=== PATIENT | male | born 1965 | race Caucasian/White ===

== ENCOUNTER 2017-02-06 05:20 | Inpatient (IN) | payer MEDICARE ==
[2017-02-01 09:10] VITALS: BP 117/71
[~2017-02-06] VITALS: Ht 198.1 cm; Wt 141.0 kg
[~2017-02-06 05:20] MED LIST: ATOR10TA PO; CEFAZOLIN 1,000 MG ONE; DEXAMETHASONE 4 MG/ML, 1ML ONE; ERGO500017 PO; HYDR8TAB27 PO; LACO200T PO; LEVE750T37 PO; METO1TAB18 PO; OXYCODONE PO; PROPOFOL 10 MG/ML, 50ML ONE; ROCURONIUM 10 MG/ML ONE; [UNRECOGNIZED DRUG - CODE] PO
[2017-02-06] MEDS ORDERED: VANCOMYCIN PER PHARMACY MC STA (05:59)
[2017-02-06] MEDS ORDERED: LACTATED RINGERS 1,000 ML IV SCH (06:28)
[2017-02-06] MEDS ORDERED: VANCOMYCIN 1,900 MG in SODIUM CHLORIDE 0.9% 250 ML IV ONE (06:30)
[2017-02-06] MEDS ORDERED: KETOROLAC 60 MG/2 ML ONE (06:37)
[2017-02-06] MEDS ORDERED: TRANEXAMIC ACID 100 MG/ML, 10ML ONE ×4 (06:37→06:38)
[2017-02-06] MEDS ORDERED: ROPIvacaine/PF 0.2%, 20 ML ONE (06:37)
[2017-02-06] MEDS ORDERED: EPINEPHRINE 1 MG/ML, 1ML ONE (06:38)
[2017-02-06] MEDS ORDERED: SODIUM CHLORIDE 0.9% 50 ML ONE (06:38)
[2017-02-06] MEDS ORDERED: BACITRACIN 50,000 UNIT ONE (06:43)
[2017-02-06] MEDS ORDERED: MIDAZOLAM 1 MG/ML, 2ML ONE ×2 (07:08→12:47)
[2017-02-06] MEDS ORDERED: FENTANYL PF 250 MCG/5ML ONE ×2 (07:08→08:46)
[2017-02-06] MEDS ORDERED: ACETAMINOPHEN 500 MG TABLET ONE (07:12)
[2017-02-06] MEDS ORDERED: GABAPENTIN 300 MG CAPSULE ONE (07:12)
[2017-02-06] MEDS ORDERED: VANCOMYCIN 1,000 MG ONE (07:47)
[2017-02-06] MEDS ORDERED: HYDROmorphone 2 MG/ML, 1ML ONE ×3 (08:45→12:38)
[2017-02-06] MEDS ORDERED: ACETAMINOPHEN 325 MG TABLET PO PRN (09:30)
[2017-02-06] MEDS ORDERED: OXYcodone 5 MG/5 ML ORAL.SOL UDC PO PRN (09:30)
[2017-02-06] MEDS ORDERED: hydrALAzine 20 MG/ML, 1ML IV PRN (09:30)
[2017-02-06] MEDS ORDERED: morphine SULFATE 10 MG/ML, 1ML IV PRN (09:30)
[2017-02-06] MEDS ORDERED: MEPERIDINE/PF 25MG/0.5ML IVPush PRN (09:30)
[2017-02-06] MEDS ORDERED: ALBUTEROL/IPRATROPIUM 2.5MG/0.5MG, 3 ML NPPB PRN (09:30)
[2017-02-06] MEDS ORDERED: PROMETHAZINE 25 MG/ML, 1ML IV PRN (09:30)
[2017-02-06] MEDS ORDERED: METOPROLOL 1 MG/ML, 5ML IV PRN (09:30)
[2017-02-06 11:32] LABS: HEMOGLOBIN 9.4 g/dL (13.7-18.0)
[2017-02-06] MEDS: D5%-0.45% NACL 1,000 ML IV SCH ×2 (11:50→19:50)
[2017-02-06] MEDS ORDERED: LORazepam 1MG TABLET PO PRN (12:00)
[2017-02-06] MEDS ORDERED: ONDANSETRON 2MG/ML, 2ML IV PRN (12:00)
[2017-02-06] MEDS ORDERED: ZOLPIDEM 5MG TABLET PO PRN (12:00)
[2017-02-06] MEDS ORDERED: ACETAMINOPHEN 650 MG/20.3 ML UDC PO PRN (12:00)
[2017-02-06] MEDS ORDERED: ONDANSETRON 4 MG TABLET PO PRN (12:00)
[2017-02-06] MEDS ORDERED: PROMETHAZINE 12.5 MG SUPP PR PRN (12:00)
[2017-02-06] MEDS ORDERED: HYDROmorphone 1 MG/ML, 1ML IV PRN (12:00)
[2017-02-06] MEDS ORDERED: PROMETHAZINE 25 MG/ML, 1ML IM PRN (12:00)
[2017-02-06] MEDS ORDERED: OXYcodone 5 MG/5 ML ORAL.SOL UDC ONE (12:38)
[2017-02-06] MEDS ORDERED: FENTANYL PF 100 MCG/2ML ONE (12:38)
[2017-02-06] MEDS: FENTANYL PF 100 MCG/2ML IV PRN ×2 (12:41→12:45)
[2017-02-06] MEDS ORDERED: MIDAZOLAM 1 MG/ML, 2ML IVPush PRN (13:00)
[2017-02-06] MEDS ORDERED: TRANEXAMIC ACID 1,000 MG in SODIUM CHLORIDE 0.9% 100 ML IVPB ONE (13:00)
[2017-02-06] MEDS: CEFAZOLIN PMX 2GM/50ML 50 ML IVPB SCH (16:24)
[2017-02-06] MEDS: METOPROLOL TARTRATE 50 MG TABLET PO SCH (17:54)
[2017-02-06] MEDS ORDERED: VANCOMYCIN PMX 1GM/200ML 200 ML IVPB ONE (19:00)
[2017-02-06] MEDS: HYDROcodone/APAP 10/325 MG TABLET PO PRN (19:30)
[2017-02-06] MEDS: DOCUSATE 100 MG CAPSULE PO SCH (19:56)
[2017-02-06 19:59] VITALS: BP 109/72
[2017-02-06] MEDS: ATORVASTATIN 10 MG TABLET PO SCH (20:05)
[2017-02-06] MEDS: DIAZEPAM 5 MG TABLET PO PRN (20:05)
[2017-02-06] MEDS ORDERED: LEVETIRACETAM 500 MG TABLET PO SCH (21:00)
[2017-02-06] MEDS ORDERED: morphine SULFATE 100 MG TABLET.ER PO SCH (21:00)
[2017-02-06] MEDS: MORPHINE 200 MG MC SCH (23:00)
[2017-02-07] MEDS: HYDROcodone/APAP 10/325 MG TABLET PO PRN ×2 (00:50→03:07)
[2017-02-07] MEDS: CEFAZOLIN PMX 2GM/50ML 50 ML IVPB SCH (00:50)
[2017-02-07] MEDS: HYDROmorphone 2MG TABLET PO PRN ×7 (01:01→23:25)
[2017-02-07] MEDS: DIAZEPAM 5 MG TABLET PO PRN ×2 (01:34→05:38)
[2017-02-07 01:58] VITALS: BP 99/61
[2017-02-07] MEDS: D5%-0.45% NACL 1,000 ML IV SCH ×4 (03:13→21:22)
[2017-02-07] MEDS: ASPIRIN 325 MG TABLET EC PO SCH ×2 (05:22→17:51)
[2017-02-07] MEDS: METOPROLOL TARTRATE 50 MG TABLET PO SCH ×2 (05:27→17:47)
[2017-02-07 05:28] VITALS: BP 91/59
[2017-02-07] MEDS: MORPHINE 200 MG MC SCH (05:38)
[2017-02-07] MEDS ORDERED: DEXAMETHASONE 4 MG/ML, 1ML IVPush SCH (06:00)
[2017-02-07 06:53] LABS: BLOOD UREA NITROGEN 24 mg/dL (7-18)
[2017-02-07 07:52] LABS: HEMOGLOBIN 9.9 g/dL (13.7-18.0)
[2017-02-07 07:59] VITALS: BP 96/56
[2017-02-07] MEDS: DOCUSATE 100 MG CAPSULE PO SCH ×2 (09:00→20:59)
[2017-02-07] MEDS: LACOSAMIDE 50 MG TABLET PO SCH (09:00)
[2017-02-07] MEDS: morphine SULFATE 100 MG TABLET.ER PO SCH ×2 (11:12→23:08)
[2017-02-07] MEDS: HYDROCHLOROTHIAZIDE 25 MG TABLET PO SCH (11:13)
[2017-02-07] MEDS: MULTIVITAMINS/MINERALS TABLET PO SCH (11:13)
[2017-02-07] MEDS: LEVETIRACETAM 500 MG TABLET PO SCH ×3 (11:13→23:08)
[2017-02-07 12:36] VITALS: BP 120/75
[2017-02-07] MEDS: KETOROLAC 30 MG/1 ML IV SCH ×2 (13:24→20:59)
[2017-02-07] MEDS: ATORVASTATIN 10 MG TABLET PO SCH (21:01)
[2017-02-07 21:15] VITALS: BP 102/64
[2017-02-08] MEDS: KETOROLAC 30 MG/1 ML IV SCH (04:14)
[2017-02-08] MEDS: HYDROmorphone 2MG TABLET PO PRN ×6 (04:14→20:38)
[2017-02-08 04:18] VITALS: BP 105/67
[2017-02-08] MEDS: METOPROLOL TARTRATE 50 MG TABLET PO SCH ×2 (04:54→18:00)
[2017-02-08] MEDS: ASPIRIN 325 MG TABLET EC PO SCH ×2 (04:54→16:56)
[2017-02-08 05:14] LABS: HEMOGLOBIN 8.3 g/dL (13.7-18.0)
[2017-02-08] MEDS: DIAZEPAM 5 MG TABLET PO PRN ×2 (06:33→19:46)
[2017-02-08] MEDS: HYDROcodone/APAP 10/325 MG TABLET PO PRN (06:33)
[2017-02-08 07:48] VITALS: BP 98/60
[2017-02-08] MEDS: HYDROCHLOROTHIAZIDE 25 MG TABLET PO SCH (07:55)
[2017-02-08] MEDS: MULTIVITAMINS/MINERALS TABLET PO SCH (08:58)
[2017-02-08] MEDS: LEVETIRACETAM 500 MG TABLET PO SCH ×3 (08:58→20:38)
[2017-02-08] MEDS: DOCUSATE 100 MG CAPSULE PO SCH ×3 (08:58→20:43)
[2017-02-08] MEDS: morphine SULFATE 100 MG TABLET.ER PO SCH ×2 (08:59→20:38)
[2017-02-08] MEDS: LACOSAMIDE 50 MG TABLET PO SCH (09:00)
[2017-02-08] MEDS: D5%-0.45% NACL 1,000 ML IV SCH ×2 (11:50→18:11)
[2017-02-08 13:32] VITALS: BP 113/71
[2017-02-08] MEDS: ATORVASTATIN 10 MG TABLET PO SCH (20:38)
[2017-02-08 21:12] VITALS: BP 112/71
[2017-02-09] MEDS: HYDROmorphone 2MG TABLET PO PRN ×4 (01:00→15:12)
[2017-02-09 03:03] VITALS: BP 102/64
[2017-02-09] MEDS: ASPIRIN 325 MG TABLET EC PO SCH (05:21)
[2017-02-09] MEDS: METOPROLOL TARTRATE 50 MG TABLET PO SCH (05:21)
[2017-02-09 06:13] LABS: HEMOGLOBIN 8.3 g/dL (13.7-18.0)
[2017-02-09 08:03] VITALS: BP 101/63
[2017-02-09] MEDS: LACOSAMIDE 50 MG TABLET PO SCH (09:00)
[2017-02-09] MEDS: LEVETIRACETAM 500 MG TABLET PO SCH (09:30)
[2017-02-09] MEDS: MULTIVITAMINS/MINERALS TABLET PO SCH (09:30)
[2017-02-09] MEDS: morphine SULFATE 100 MG TABLET.ER PO SCH (09:31)
[2017-02-09] MEDS: HYDROCHLOROTHIAZIDE 25 MG TABLET PO SCH (09:35)
[2017-02-09] MEDS: DOCUSATE 100 MG CAPSULE PO SCH (09:35)
[2017-02-09 14:38] VITALS: BP 116/73
[2017-02-09] MEDS ORDERED: ASPI325T4 PO (15:48)
[2017-02-09] MEDS ORDERED: DIAZ5TAB PO (15:49)
[2017-02-09] MEDS ORDERED: ONDA4TAB7 PO (15:50)
[2017-02-09] MEDS ORDERED: HYDR-3307 PO (15:50)
[2017-02-09] MEDS ORDERED: DOCU-30 PO (15:51)
[2017-02-13] MEDS ORDERED: ERGOCALCIFEROL 50,000 UNIT CAPSULE PO SCH (23:00)
== END 2017-02-09 16:20 | disposition home health service (06) | DRG 466 ==
LOC: ORIP 05:20 → 4NOR 13:41 → DCLOUNGE 02-09 15:43
PROVIDERS: ADMIT Orthopaedic Surgery; ATTEND Orthopaedic Surgery
PROC: 0SPB0JZ Removal of Synthetic Substitute from Left Hip Joint, Open Approach (ICD-10-PCS; 2017-02-06)
PROC: 0SPB09Z Removal of Liner from Left Hip Joint, Open Approach (ICD-10-PCS; 2017-02-06)
PROC: 0SUS09Z Supplement Left Hip Joint, Femoral Surface with Liner, Open Approach (ICD-10-PCS; 2017-02-06)
PROC: 0SRB02A Replacement of Left Hip Joint with Metal on Polyethylene Synthetic Substitute, Uncemented, Open Approach (ICD-10-PCS; principal; 2017-02-06 07:30)
DX: T84.031A Mechanical loosening of internal left hip prosthetic joint, initial encounter (principal); E43 Unspecified severe protein-calorie malnutrition; Y83.8 Other surgical procedures as the cause of abnormal reaction of the patient, or of later complication, without mention of misadventure at the time of the procedure; Z79.891 Long term (current) use of opiate analgesic; Y92.89 Other specified places as the place of occurrence of the external cause
CPT/HCPCS: 36415; 71010; 72170; 80048; 82040; 85014; 85018; 85025; 86850; 86900; 87070; 87075; 87205; 88304; 89051; 93005; C1713; J0171; J0690; J1100; J1170; J1885; J2250; J2704; J2795; J3010; J3370; C1762; C1776; J7050; J7120